=== PATIENT | male | born 1965 | race Caucasian/White ===

== ENCOUNTER 2020-03-27 13:22 | Emergency (ER) | payer OTHER ==
[~2020-03-27] VITALS: Ht 177.8 cm; Wt 83.9 kg
[2020-03-27 13:20] VITALS: BP 146/92
[2020-03-27 14:00] VITALS: BP 127/78
[2020-03-27] MEDS ORDERED: CRANBERRY500 M3 PO (14:20)
[2020-03-27] MEDS ORDERED: MILK OF MA400 MG/51 ORAL (14:20)
[2020-03-27] MEDS ORDERED: VITAMIN B-1100 MG ORAL (14:20)
[2020-03-27] MEDS ORDERED: ATORVASTATIN CA40 MG ORAL (14:20)
[2020-03-27] MEDS ORDERED: PANTOPRAZOLE SO40 MG ORAL (14:20)
[2020-03-27] MEDS ORDERED: COLACE100 MG ORAL (14:20)
[2020-03-27] MEDS ORDERED: MAALOX ADVANCE1 EACH PO (14:20)
[2020-03-27] MEDS ORDERED: FOLIC ACID1 MG ORAL (14:20)
[2020-03-27] MEDS ORDERED: GLIPIZIDE5 MG ORAL (14:20)
[2020-03-27] MEDS ORDERED: MULTIVITAMINS1 EAC8 ORAL (14:20)
[2020-03-27] MEDS ORDERED: FERROUS SULFAT325 MG ORAL (14:20)
[2020-03-27] MEDS ORDERED: METFORMIN HCL1000 M1 ORAL (14:20)
[2020-03-27] MEDS ORDERED: TYLENOL EXTRA500 MG ORAL (14:20)
[2020-03-27] MEDS ORDERED: ASPIRIN325 MG ORAL (14:26)
[2020-03-27] MEDS ORDERED: HUMALOG100 UNIT/4 SUBQ (14:26)
--- NOTE | 2020-03-27 14:28 | Emergency Room Report ---
History of Present Illness General Chief Complaint: Multiple Trauma/Fall Source: Patient Present Illness HPI Disclaimer: Please note that this report is being documented using [employer] technology. This can lead to erroneous entry secondary to incorrect interpretation by the dictating instrument. HPI: 54-year-old male with reported history of VT status post stenting 2-3 years ago unknown vessel, diabetes type 1, sickle cell disease with neurovascular involvement, dementia, mood disorder and alcohol abuse presents for evaluation after syncopal episode. Presents from nursing facility after a ground-level fall causing laceration to the back of his head. Unknown loss of conscious time. He presents complaining of chest pressure and shortness of breath. Patient is a poor historian cannot provide any significant history. Medication forms provided from nursing facility shows he is taking full dose aspirin and atorvastatin. No blood thinners or Plavix mentioned in medical paperwork. PMH: VT, sickle cell, diabetes PSH: Cardiac stent Allergies: Reviewed Social Hx: Reviewed Allergies: Coded Allergies: No Known Allergies (Unverified , 03/27/20) COVID-19 Screening Contact w/high risk pt: No Experienced COVID-19 symptoms?: No COVID-19 Testing performed PIANO STRINGER: No Nursing Documentation-PMH Past Medical History: No History, Except For Review of Systems All Other Systems: negative except mentioned in HPI Physical Exam Vital Signs Date Time Temp Pulse Resp B/P (MAP) Pulse Ox O2 Delivery O2 Flow Rate FiO2 03/27/20 13:17 98.1 80 18 146/92 (110) 98 Room Air General: Awake and alert, no acute distress HEENT: Normocephalic. 5 cm laceration over the occiput. Not bleeding. No debris noted. Cardiovascular: RRR. S1 and S2 normal. No murmur appreciated Resp: Normal work of breathing. No cough, wheezing or crackles appreciated Abdomen: Abdomen is soft, nondistended. Nontender Skin: 5 cm linear superficial laceration over the occiput. No bleeding. No foreign bodies identified. MSK: Normal tone and bulk. Moving all extremities. No obvious deformity. Neuro: Awake and alert. Seems confused though answering questions. He is a poor historian Procedures Critical Care Time Critical Care Time Total critical care time: Approximately 45 minutes Due to a high probability of clinically significant, life threatening deterioration, the patient required the highest level of preparedness to intervene emergently and I personally spent this critical care time directly and personally managing the patient. This critical care time included obtaining a history, examining the patient, pulse oximetry, ordering and reviewing studies, ordering treatments, evaluating response to treatment and updating management plan as needed, frequent reassessment and discussion with other providers as well as arranging for ultimate disposition. This critical to care time was performed to assess and manage the high probability of life-threatening deterioration that could result in multiorgan failure. This critical care time is separate from the separately billable procedures and treating other patients. Laceration/Wound Repair Laceration/Wound Repair : Consent: Verbal Wound Location: head Wound's Depth, Shape: superficial, linear Wound Length (cm): 5 Wound Explored: clean Irrigated w/ Saline (ccs): 500 Betadine Prep?: Yes Wound Debrided: None Wound Repaired With: ewa Number of Sutures: 3 Sterile Dressing Applied?: Yes Patient Tolerated: Well Complications: None Medical Decision Making Diagnostic Impression: Primary Impression: STEMI (ST elevation myocardial infarction) Additional Impressions: Syncope Scalp laceration ER Course Is a 54-year-old male presenting for evaluation after syncopal episode. He sustained a superficial scalp laceration. Patient's EKG concerning for acute ST elevation VT. There elevations in leads aVR, precordial leads and inferior leads. Discussed with [facility] who is a STEMI center. Dr. Souza has accepted the patient for transfer. CT scan does not show acute head bleed but is concerning for possible subacute cerebellar infarct. Scalp laceration washed out and closed with 3 ewa. Tetanus updated. Will load the patient with aspirin, clopidogrel (Brilinta not available at our facility), heparin bolus and start heparin drip. Will arrange emergent transport. Laboratory Tests Test 03/27/20 14:15 White Blood Count 8.8 K/UL (4.8-10.8) Red Blood Count 4.98 M/UL (4.70-6.10) Hemoglobin 13.4 G/DL (14.2-18.0) L Hematocrit 41.1 % (42.0-52.0) L Mean Corpuscular Volume 83 FL (80-99) Mean Corpuscular Hemoglobin 27.0 PG (27.0-31.0) Mean Corpuscular Hemoglobin Concent 32.6 G/DL (32.0-36.0) Red Cell Distribution Width 16.2 % (11.6-14.8) H Platelet Count 234 K/UL (150-450) Mean Platelet Volume 6.7 FL (6.5-10.1) Neutrophils (%) (Auto) 60.5 % (45.0-75.0) Lymphocytes (%) (Auto) 26.9 % (20.0-45.0) Monocytes (%) (Auto) 7.4 % (1.0-10.0) Eosinophils (%) (Auto) 3.9 % (0.0-3.0) H Basophils (%) (Auto) 1.2 % (0.0-2.0) Prothrombin Time 11.4 SEC (9.30-11.50) Prothrombin Time INR 1.0 (0.9-1.1) Activated Partial Thromboplast Time 24 SEC (23-33) Sodium Level Pending Potassium Level Pending Chloride Level Pending Carbon Dioxide Level Pending Blood Urea Nitrogen Pending Creatinine Pending Estimated Glomerular Filtration Rate Pending Glucose Level Pending Calcium Level Pending Total Bilirubin Pending Aspartate Amino Transferase (AST) Pending Alanine Aminotransferase (ALT) Pending Alkaline Phosphatase Pending Total Creatine Kinase Pending Troponin I Pending Total Protein Pending Albumin Pending Globulin Pending EKG Diagnostic Results Troponin ordered: Yes When was troponin ordered?: Mar 27, 2020 EKG Time: 14:02 Rate: normal Rhythm: NSR Other Impression Sinus rhythm, normal axis, ST segment elevation in aVR, V2 through V6, room #3 depression room normal 1, aVL Rhythm Strip Diag. Results Rhythm Strip Time: 14:02 EP Interpretation: yes Rate: 65 Rhythm: NSR, no PVC's, no ectopy CT/MRI/US Diagnostic Results CT/MRI/US Diagnostic Results : Impression Procedure: CT Head no Contrast Indications: Head injury, status post ground-level fall with laceration to the back of head. Head and neck pain Technique: Spiral acquisitions obtained through the brain. Angled axial and coronal 5 x 5 mm slices were reconstructed. Total dose length product 1098 mGycm. CTDI vol(s) 53 mGy. Dose reduction achieved using automated exposure control Comparison: No Findings: There is low-attenuation involving the inferomedial left cerebellar hemisphere. This is somewhat wedge-shaped. There is apparent central low attenuation within the jose antonio, although this is likely artifactual. There is generalized age-related enlargement of the ventricles and extra-axial CSF spaces. There is fairly extensive periventricular deep white matter low-attenuation, consistent with chronic microvascular ischemic changes. Old bilateral basal ganglia lacunar infarcts are noted. Old lacunar infarct also seen in the bilateral grant radiata. No acute intracranial hemorrhage or edema. No mass effect nor midline shift. The mastoids are clear. The calvarium is intact. Impression: Subacute versus old left cerebellar hemispheric infarct Negative for acute intracranial bleed or mass effect Other old infarcts, as described Chronic and age-related changes, as described Findings discussed by phone with Dr. Asif at the time of interpretation The CT scanner at [facility] is accredited by the [employer] and the scans are performed using protocols designed to limit radiation exposure to as low as reasonably achievable to attain images of sufficient resolution adequate for diagnostic evaluation. Dictated By: Mata Stark MD Electronically Signed By:Mata Stark MD Signed Date/Time03/27/20 1450 CC: Jia Ballesteros Last Vital Signs Date Time Temp Pulse Resp B/P (MAP) Pulse Ox O2 Delivery O2 Flow Rate FiO2 03/27/20 13:20 80 18 Room Air 03/27/20 13:20 98.1 146/92 98 Disposition: SHORT-TERM HOSP Condition: Serious Alfredito Asif MD Mar 27, 2020 14:27
[2020-03-27 14:43] LABS: BASOPHILS % (AUTO) 1.2 % (0.0-2.0); EOSINOPHILS % (AUTO) 3.9 % (0.0-3.0); HEMATOCRIT 41.1 % (42.0-52.0); HEMOGLOBIN 13.4 G/DL (14.2-18.0); LYMPHOCYTES % (AUTO) 26.9 % (20.0-45.0); MEAN CORPUSCULAR VOLUME 83 FL (80-99); MONOCYTES % (AUTO) 7.4 % (1.0-10.0); NEUTROPHILS % (AUTO) 60.5 % (45.0-75.0); PLATELET COUNT 234 K/UL (150-450); RED BLOOD COUNT 4.98 M/UL (4.70-6.10); RED CELL DISTRIBUTION WIDTH 16.2 % (11.6-14.8); WHITE BLOOD COUNT 8.8 K/UL (4.8-10.8)
[2020-03-27 14:45] VITALS: BP 140/92
[2020-03-27 14:54] LABS: ANION GAP 9 mmol/L (5-15); BLOOD UREA NITROGEN 14 mg/dL (7-18); CALCIUM 9.2 MG/DL (8.5-10.1); CARBON DIOXIDE 25 MMOL/L (21-32); CHLORIDE 100 MMOL/L (98-107); CREATININE 0.9 MG/DL (0.55-1.30); POTASSIUM 4.6 MMOL/L (3.5-5.1); SODIUM 134 MMOL/L (136-145)
--- NOTE | 2020-03-27 14:55 | Diagnostic Imaging Report ---
Indications: Head injury, status post ground-level fall with laceration to the back of head. Head and neck pain Technique: Spiral acquisitions obtained through the brain. Angled axial and coronal 5 x 5 mm slices were reconstructed. Total dose length product 1098 mGycm. CTDI vol(s) 53 mGy. Dose reduction achieved using automated exposure control Comparison: No Findings: There is low-attenuation involving the inferomedial left cerebellar hemisphere. This is somewhat wedge-shaped. There is apparent central low attenuation within the jose antonio, although this is likely artifactual. There is generalized age-related enlargement of the ventricles and extra-axial CSF spaces. There is fairly extensive periventricular deep white matter low-attenuation, consistent with chronic microvascular ischemic changes. Old bilateral basal ganglia lacunar infarcts are noted. Old lacunar infarct also seen in the bilateral grant radiata. No acute intracranial hemorrhage or edema. No mass effect nor midline shift. The mastoids are clear. The calvarium is intact. Impression: Subacute versus old left cerebellar hemispheric infarct Negative for acute intracranial bleed or mass effect Other old infarcts, as described Chronic and age-related changes, as described Findings discussed by phone with Dr. Asif at the time of interpretation The CT scanner at [facility] is accredited by the [employer] and the scans are performed using protocols designed to limit radiation exposure to as low as reasonably achievable to attain images of sufficient resolution adequate for diagnostic evaluation.
[2020-03-27 14:59] LABS: ALANINE AMINOTRANSFERASE 67 U/L (12-78); ALBUMIN 3.3 G/DL (3.4-5.0); ALBUMIN/GLOBULIN RATIO 0.9 (1.0-2.7); ALKALINE PHOSPHATASE 83 U/L (46-116); ASPARTATE AMINO TRANSFERASE 23 U/L (15-37); BILIRUBIN,TOTAL 0.2 MG/DL (0.2-1.0); CREATINE KINASE 98 U/L (26-308)
[2020-03-27] MEDS ORDERED: Heparin 25,000u/D5W 500ml 500 ML IV SCH (15:00)
[2020-03-27] MEDS ORDERED: Heparin 5000 units/ml inj IV ONE (15:00)
--- NOTE | 2020-03-27 15:09 | Diagnostic Imaging Report ---
Indication: Ground-level fall, laceration to back of head, head and neck pain Technique: Spiral acquisitions obtained through the cervical spine. No IV contrast utilized. Multiplanar reconstructions were generated. Total dose length product 446 mGycm. CTDIvol(s) 20 mGy. Dose reduction achieved using automated exposure control. Comparison: none Findings: There is evidence of prior anterior fusion at C4, C5, C6. The fusion hardware appears well aligned, and there is suggestion of some ankylosis of the intervening discs. No prevertebral soft tissue swelling. There is mild anterior offset of C7 on T1. The remainder of the bony alignment is normal. Vertebral body heights are preserved. No acute fractures. No dislocations. At C2-3, facet arthrosis results in moderate to severe narrowing of the left neural foramen. There is mild broad-based posterior central disc protrusion, which does not result in any significant spinal canal stenosis. At C3-4, bilateral facet arthrosis results in severe right and moderate to severe left neural foraminal narrowing. No significant disc bulge or protrusion or spinal canal stenosis. At C4-5, there is severe left and moderate right neural foraminal stenosis, due to facet and uncinate hypertrophy. Short pedicles result in borderline narrowing of the spinal canal. At C5-6, there is severe bilateral neural foraminal narrowing. Broad-based posterior disc protrusion/osteophyte complex results in mild narrowing of the spinal canal. At C6-C7, there is mild narrowing of the spinal canal due to short pedicles and broad-based posterior disc protrusion. There is severe bilateral neural foraminal stenosis. There is mild degenerative disc narrowing. At C7-T1, there is mild left neural foraminal stenosis. No significant disc bulge or protrusion or spinal stenosis. The included extra spinal soft tissues are unremarkable. Impression: No acute bony trauma Degenerative changes, as delineated on a level by level basis above The CT scanner at [facility] is accredited by the [employer] and the scans are performed using protocols designed to limit radiation exposure to as low as reasonably achievable to attain images of sufficient resolution adequate for diagnostic evaluation.
[2020-03-27 15:10] VITALS: BP 142/97
[2020-03-27] MEDS ORDERED: Tetanus/Diptheria/Pertussis IM ONE ×2 (15:14→15:15)
[2020-03-27 15:29] VITALS: BP 142/97
== END 2020-03-27 15:23 | disposition short-term general hospital (02) ==
LOC: EDBD 13:22 → EMR 14:22
DX: I21.3 ST elevation (STEMI) myocardial infarction of unspecified site (principal); S01.01XA Laceration without foreign body of scalp, initial encounter; W18.30XA Fall on same level, unspecified, initial encounter; Y92.129 Unspecified place in nursing home as the place of occurrence of the external cause; Z95.5 Presence of coronary angioplasty implant and graft; I25.2 Old myocardial infarction; E10.8 Type 1 diabetes mellitus with unspecified complications; Z23 Encounter for immunization; M48.02 Spinal stenosis, cervical region
CPT/HCPCS: 12002; 36415; 70450; 72125; 80053; 82550; 84484; 85025; 85610; 85730; 90471; 90715; 93005; 96365; 96375; J1644; U0002; Z7502; 99291